=== PATIENT | male | born 1970 | race Caucasian/White ===

== ENCOUNTER 2023-08-31 16:57 | Emergency (ER) | payer OTHER, SELFPAY ==
[2023-08-31 17:02] VITALS: BP 130/92; PULSE 92; TEMP 36.8; O2SAT 99; BMI 23.5
--- NOTE | 2023-08-31 17:57 | CT_ITS ---
The [address] [address] Patient Name: XAVIER QUINTERO MRN: [id number] date: 1970 Sex: M Assigned Patient Location: ER Current Patient Location: ED.MAIN Accession/Order Number: [id number] Exam Date: 08/31/2023 18:29 Report Date: 08/31/2023 20:05 At the request of: BECKIE VORA Procedure: CT abdomen pelvis w con CT ABDOMEN AND PELVIS WITH CONTRAST: INDICATION: abd pain. COMPARISON: None. TECHNIQUE:Multiple thin section transaxial slices were acquired through the abdomen and pelvis with intravenous contrast. Coronal and sagittal reconstructed images were reviewed. Oral contrastWas not administered. FINDINGS: LOWER CHEST: The lower chest is unremarkable. LIVER: The liver is unremarkable. GALLBLADDER AND BILIARY SYSTEM: No obvious ductal dilation. No calcified stones. SPLEEN: The spleen is unremarkable. PANCREAS: The pancreas is unremarkable. ADRENAL GLANDS: The adrenal glands are unremarkable. KIDNEYS AND URETERS: There is a 2.5 mm size calculus at the left ureterovesical junction. This is not contributing to obstructive uropathy of the left kidney. There is no right hydronephrosis. The right ureter is within normal limits. There is a nonobstructive calculus in the right upper kidney. VASCULATURE: There is atherosclerotic plaque in the abdominal aorta without aneurysm. There is a filter in the inferior vena cava. PERITONEUM/RETROPERITONEUM: Peritoneum/retroperitoneum is unremarkable. LYMPH NODES: No suspicious lymphadenopathy. GASTROINTESTINAL TRACT: The bowel is normal in caliber.There is chronic colonic diverticulosis of the colon without acute inflammation.The appendix is visualized and is not inflamed. BLADDER: There is a 2.5 mm size calculus in the left ureterovesical junction. REPRODUCTIVE SYSTEM: Reproductive system is unremarkable. BODY WALL: Unremarkable. BONES: There is a compression deformity of the L5 vertebral body with an associated Schmorl's node. This has a chronic appearance. CT/CT abdomen pelvis w con IMPRESSION: There is a 2.5 mm size calculus at the left ureterovesical junction. Despite the presence of this calculus, it is not contributing to hydronephrosis of the left kidney. Electronically authenticated by: EVELINE TAO Date: 08/31/2023 20:05
--- NOTE | 2023-08-31 18:06 | ED_ITS ---
HPI - Abdominal Pain General Chief Complaint: Abdominal Pain Stated Complaint: Abdominal Pain Time Seen by Provider: 08/31/23 17:21 Source: patient Mode of arrival: walk-in Limitations: no limitations History of Present Illness HPI narrative: Patient presents ED complaining of generalized vague abdominal pain. He reports that he has had a longstanding history of drinking alcohol. He said this pain started 4 days ago. He has not been drinking the past couple of days. He said he intermittently drinks and he is really cut back in the past month or so. He reports he started drinking at age 19 and he used to drink a lot but he does not drink as much as he used to. He has quit on his own a few times but it usually only lasts about 3 weeks. Patient reports nausea but no vomiting. He reports decreased appetite and p.o. intake over the past 4 days. No pain into the back no fevers. He is not jaundiced. He reports normal stools and no UTI symptoms. Related Data Home Medications ?Medication ?Instructions ?Recorded ?Confirmed clonidine HCl 0.2 mg tablet 0.2 mg PO Q12H PRN alcohol 08/31/23 08/31/23 withdrawal paliperidone 6 mg tablet,extended 6 mg PO Q24H 08/31/23 08/31/23 release 24 hr vortioxetine 10 mg tablet 10 mg PO DAILY 08/31/23 08/31/23 (Trintellix) Allergies Allergy/AdvReac Type Severity Reaction Status Date / Time No Known Drug Allergies Allergy Verified 08/31/23 17:02 Review of Systems ROS Status of ROS 10 or more systems reviewed and unremark able except as noted in history and below [facility] Medical History (Updated 08/31/23 @ 20:33 by Shayy Addison MD) Depression ?F32.A - Depression, unspecified (ICD-10) Anxiety ?F41.9 - Anxiety disorder, unspecified (ICD-10) Exam Narrative Exam Narrative: Time Seen: [] Vital Signs: [Per nurse's notes.] General: [Alert] Skin: [Warm, dry, no rash.] Head: [Normocephalic, atraumatic.] Neck: [Supple, trachea midline.] Eye: [Pupils are equal, round and reactive to light, extraocular movements are intact, normal conjunctiva.] Ears, nose, mouth and throat: oral mucosa moist. Cardiovascular: [Regular rate and rhythm, no murmur.] Respiratory: [Lungs are clear to auscultation, respirations are non-labored, breath sounds are equal.] Chest wall: [No tenderness, no deformity.] Gastrointestinal: [Soft, nontender, non distended, normal bowel sounds.] MSK: 5 out of 5 muscle strength x 4 extremities no calf pain or edema Lymphatics: [No lymphadenopathy.] Psychiatric: [Cooperative, appropriate mood & affect.] Neurological: [Alert and oriented to person, place, time, and situation, no focal neurological deficit observed.] Constitutional Vital Signs, click to edit/add: Last Vital Signs Temp 98.3 F 08/31/23 17:02 Pulse 80 08/31/23 19:15 Resp 18 08/31/23 19:15 BP 114/80 08/31/23 19:15 Pulse Ox 99 08/31/23 19:15 O2 Del Method Room Air 08/31/23 19:15 Course Vital Signs Vital signs: Vital Signs Temperature 98.3 F 08/31/23 17:02 Pulse Rate 92 H 08/31/23 17:02 Respiratory Rate 18 08/31/23 17:02 Blood Pressure 130/92 H 08/31/23 17:02 Pulse Oximetry 99 08/31/23 17:02 Temperature 98.3 F 08/31/23 17:02 Pulse Rate 80 08/31/23 19:15 Respiratory Rate 18 08/31/23 19:15 Blood Pressure 114/80 08/31/23 19:15 Pulse Oximetry 99 08/31/23 19:15 Oxygen Delivery Method Room Air 08/31/23 19:15 MDM - Abdominal Pain Lab Data Labs: Lab Results 08/31/23 08/31/23 Range/Units 18:47 18:50 WBC 4.9 (4.0-11.0) 10^3/uL RBC 4.51 L (4.70-6.10) 10^6/uL Hgb 15.1 (14.0-18.0) g/dL Hct 43.7 (42.0-54.0) % MCV 96.9 H (80.0-94.0) fL MCH 33.5 (25.9-34.0) pg MCHC 34.6 (29.9-35.2) g/dL RDW 12.0 (11.0-15.0) % Plt Count 102 L (150-450) 10^3/uL MPV 10.0 (9.5-13.5) fL Neut % (Auto) 57.4 (43.0-75.0) % Lymph % (Auto) 32.8 (20.5-60.0) % [place] % (Auto) 8.2 (1.7-12.0) % Eos % (Auto) 0.6 L (0.9-7.0) % Baso % (Auto) 0.8 (0.2-2.0) % Neut # (Auto) 2.8 (1.4-6.5) 10^3/uL Lymph # (Auto) 1.6 (1.2-3.8) 10^3/uL [place] # (Auto) 0.4 (0.3-0.8) 10^3/uL Eos # (Auto) 0.0 (0.0-0.7) 10^3/uL Baso # (Auto) 0.0 (0.0-0.1) 10^3/uL Abs Immat Gran (auto) 0.01 (0.00-0.03) 10^3/uL Imm/Tot Granulo (auto) 0.2 (0.0-0.5) % Sodium 136 (136-145) mmol/L Potassium 3.3 L (3.5-5.1) mmol/L Chloride 103 (98-107) mmol/L Carbon Dioxide 27.0 (21.0-32.0) mmol/L Anion Gap 9.3 BUN 5.0 L (7.0-18.0) mg/dL Creatinine 0.81 (0.70-1.30) mg/dL Est GFR ( Amer) >60 (>=60) Est GFR (Non-Af Amer) >60 (>=60) BUN/Creatinine Ratio 6.2 Glucose 103 (74-106) mg/dL Lactate 1.2 (0.4-2.0) mmol/L Calcium 8.8 (8.5-10.1) mg/dL Total Bilirubin 0.5 (0.2-1.0) mg/dL AST 34 (15-37) U/L ALT 47 (16-63) U/L Alkaline Phosphatase 100 (46-116) U/L Total Protein 6.8 (6.4-8.2) g/dL Albumin 3.4 (3.4-5.0) g/dL Globulin 3.4 g/dL Albumin/Globulin Ratio 1.0 Lipase 36.0 (16.0-77.0) U/L Urine Color Lt. yellow (YELLOW) Urine Clarity Clear (CLEAR) Urine pH 7.0 (5.0-9.0) Ur Specific [place] 1.010 (1.005-1.025) Urine Protein Negative (NEG/TRACE) mg/dL Urine Glucose (UA) Negative (NEGATIVE) mg/dL Urine Ketones Negative (NEGATIVE) mg/dL Urine Occult Blood Negative (NEGATIVE) Urine Nitrite Negative (NEGATIVE) Urine Bilirubin Negative (NEGATIVE) Urine Urobilinogen 1.0 (0.2-1.0) EU/dL Ur Leukocyte Esterase Small A (NEGATIVE) Urine RBC 0-2 (0-2) #/HPF Urine WBC 5-10 A (NONE SEEN) #/HPF Ur Squamous Epith Cells Few A (NONE/RARE) #/LPF Ur Transition Epith Cell Few A (NONE SEEN) #/LPF Urine Crystals Seen A (None Seen) #/HPF Calcium Oxalate Crystal Few Amorphous Sediment Moderate Urine Bacteria Small A (NONE SEEN) #/HPF Urine Casts None seen (NONE SEEN) #/LPF Urine Mucus Small A (NONE SEEN) Ur Culture Indicated? Yes Discharge Plan Discharge Stand Alone Forms: Portal Instructions Chief Complaint: Abdominal Pain Clinical Impression: Calculus of kidney Patient Disposition: Home, Self-Care Time of Disposition Decision: 20:32 Condition: Good Prescriptions / Home Meds: No Action clonidine HCl 0.2 mg tablet 0.2 mg PO Q12H PRN (Reason: alcohol withdrawal) Trintellix 10 mg tablet 10 mg PO DAILY paliperidone 6 mg tablet extended release 24hr 6 mg PO Q24H Print Language: Kinyarwanda Instructions: Kidney Stones (ED), How to Strain Your Urine (ED) Referrals: Giovanni Patterson MD [Physician] - 1 week Physician,Non-StaffMD [Primary Care Provider] - 1 week Shaikh López MD [Physician] - 1 week Discharge Date/Time: 08/31/23 21:08
--- NOTE | 2023-08-31 18:12 | PC.NURSE ---
patient reports abdominal pain, described as nausea and pressure, for past 4 days. patient reports poor oral intake due to this. patient reports he was a very heavy drinker for about 30years but cut back to 2-3 per day 6months ago
[2023-08-31] MEDS: 0.9 % SODIUM CHLORIDE 1,000 ML 100 ML IV (18:50)
[2023-08-31 18:58] LABS: Basophils Percent Auto 0.8 % (0.2-2.0); Eosinophils Percent Auto 0.6 % (0.9-7.0); Hematocrit 43.7 % (42.0-54.0); Hemoglobin 15.1 g/dL (14.0-18.0); Immature Granulocytes Abs Auto 0.01 10^3/uL (0.00-0.03); Immature Granulocytes Pct Auto 0.2 % (0.0-0.5); Lymphocytes Absolute Auto 1.6 10^3/uL (1.2-3.8); Lymphocytes Percent Auto 32.8 % (20.5-60.0); Mean Corpuscular HGB Conc 34.6 g/dL (29.9-35.2); Mean Corpuscular Hemoglobin 33.5 pg (25.9-34.0); Mean Corpuscular Volume 96.9 fL (80.0-94.0); Monocytes Absolute Auto 0.4 10^3/uL (0.3-0.8); Monocytes Percent Auto 8.2 % (1.7-12.0); Neutrophils Absolute Auto 2.8 10^3/uL (1.4-6.5); Neutrophils Percent Auto 57.4 % (43.0-75.0); Platelet Count 102 10^3/uL (150-450); Red Blood Count 4.51 10^6/uL (4.70-6.10); White Blood Count 4.9 10^3/uL (4.0-11.0)
[2023-08-31 19:11] LABS: Bilirubin Urine NEGATIVE (NEGATIVE); Blood Urine NEGATIVE (NEGATIVE); Clarity Urine CLEAR (CLEAR); Color Urine LT. YELLOW (YELLOW); Glucose Urine UA NEGATIVE (NEGATIVE); Ketones Urine NEGATIVE (NEGATIVE); Leukocyte Esterase Urine SMALL (NEGATIVE); Nitrite Urine NEGATIVE (NEGATIVE); Protein Urine NEGATIVE (NEG/TRACE)
[2023-08-31 19:13] LABS: Urine Microscopic Indicated YES
[2023-08-31 19:13] LABS: Alanine Aminotransferase 47 U/L (16-63); Albumin Level 3.4 g/dL (3.4-5.0); Alkaline Phosphatase 100 U/L (46-116); Anion Gap 9.3; Aspartate Amino Transferase 34 U/L (15-37); BUN Creatinine Ratio 6.2; Bilirubin Total 0.5 mg/dL (0.2-1.0); Calcium 8.8 mg/dL (8.5-10.1); Chloride 103 mmol/L (98-107); Estimated GFR (African America >60 (>=60); Estimated GFR (Non-African Ame >60 (>=60); Globulin 3.4 g/dL; Glucose 103 mg/dL (74-106); Potassium 3.3 mmol/L (3.5-5.1); Sodium 136 mmol/L (136-145); Total Protein 6.8 g/dL (6.4-8.2)
[2023-08-31 19:15] VITALS: BP 114/80; PULSE 80; O2SAT 99
[2023-08-31 19:19] LABS: Bacteria Urine SMALL #/HPF (NONE SEEN); Crystals Seen? Seen #/HPF (None Seen); Mucus Urine SMALL (NONE SEEN); RBC Urine 0-2 #/HPF (0-2); Squamous Epithelial Cell Urine FEW #/LPF (NONE/RARE); Transitional Epi Cells Urine FEW #/LPF (NONE SEEN)
[2023-08-31 19:20] LABS: Amorphous Sediment Urine MODERATE; Calcium Oxalate Crystals Urine FEW; Cast Seen? NONE SEEN #/LPF (NONE SEEN); Urine Culture Indicated YES
[2023-08-31 19:48] LABS: Lactate/Lactic Acid 1.2 mmol/L (0.4-2.0)
--- NOTE | 2023-08-31 20:25 | ED.GENADUL1 ---
HPI HPI - General Adult General Chief complaint: Abdominal Pain Stated complaint: Abdominal Pain Time Seen by Provider: 08/31/23 17:21 Source: patient Mode of arrival: walk-in Limitations: no limitations History of Present Illness HPI narrative: This 53-year-old male with a history of alcohol dependence was signed out to me at shift change pending CT scan and laboratory analysis. He presents for evaluation of left lower quadrant abdominal pain that has been present for the past several days. Patient was seen and examined. He denies any nausea or vomiting. He states he is not really having pain but it is a discomfort in his lower abdomen. He is not having any burning with urination or fevers. He denies any additional complaints at this time. He does not have a family physician to follow-up with. I reviewed his labs. He has a normal white count and hemoglobin. Electrolytes are normal. He has a normal lactic acid. He does have bacteria, leukocyte esterase and 2-5 white blood cells per high-power field in his urine. He will be given a dose of Toradol for pain control as well as 1 g of IV Rocephin for the slight UTI that he has. He will be referred to outpatient urology and family medicine. He will be discharged home with prescription for Keflex and ketorolac to use as needed Related Data Home Medications ?Medication ?Instructions ?Recorded ?Confirmed clonidine HCl 0.2 mg tablet 0.2 mg PO Q12H PRN alcohol 08/31/23 08/31/23 withdrawal paliperidone 6 mg tablet,extended 6 mg PO Q24H 08/31/23 08/31/23 release 24 hr vortioxetine 10 mg tablet 10 mg PO DAILY 08/31/23 08/31/23 (Trintellix) Allergies Allergy/AdvReac Type Severity Reaction Status Date / Time No Known Drug Allergies Allergy Verified 08/31/23 17:02 Opioid HPI Opioid Management Most Recent Opioid Data: Last Pain Scale 4 08/31/23 17:08 PFSH PFSH Medical History (Updated 08/31/23 @ 20:33 by Shayy Addison MD) Depression ?F32.A - Depression, unspecified (ICD-10) Anxiety ?F41.9 - Anxiety disorder, unspecified (ICD-10) Exam Constitutional Vital Signs, click to edit/add: Last Vital Signs Temp 98.3 F 08/31/23 17:02 Pulse 80 08/31/23 19:15 Resp 18 08/31/23 19:15 BP 114/80 08/31/23 19:15 Pulse Ox 99 08/31/23 19:15 O2 Del Method Room Air 08/31/23 19:15 Course Vital Signs Vital signs: Vital Signs Temperature 98.3 F 08/31/23 17:02 Pulse Rate 92 H 08/31/23 17:02 Respiratory Rate 18 08/31/23 17:02 Blood Pressure 130/92 H 08/31/23 17:02 Pulse Oximetry 99 08/31/23 17:02 Temperature 98.3 F 08/31/23 17:02 Pulse Rate 80 08/31/23 19:15 Respiratory Rate 18 08/31/23 19:15 Blood Pressure 114/80 08/31/23 19:15 Pulse Oximetry 99 08/31/23 19:15 Oxygen Delivery Method Room Air 08/31/23 19:15 Medical Decision Making MDM Narrative Medical decision making narrative: [place] [address] CT Scan Report Signed Patient: XAVIER QUINTERO MR#: [id number] : 1970 Acct:[id number] Age/Sex: 53 / M ADM Date: 08/31/23 Loc: ER Attending Dr: Ordering Physician: Beckie Orantes D.O. Date of Service: 08/31/23 Procedure(s): CT abdomen pelvis w con Accession Number(s): [id number] cc: Physician,Non-Staff M.DZakiya~ The [address] [address] Patient Name: XAVIER QUINTERO MRN: [id number] date: 1970 Sex: M Assigned Patient Location: ER Current Patient Location: ED.MAIN Accession/Order Number: [id number] Exam Date: 08/31/2023 18:29 Report Date: 08/31/2023 20:05 At the request of: BECKIE ORANTES Procedure: CT abdomen pelvis w con CT ABDOMEN AND PELVIS WITH CONTRAST: INDICATION: abd pain. COMPARISON: None. TECHNIQUE:Multiple thin section transaxial slices were acquired through the abdomen and pelvis with intravenous contrast. Coronal and sagittal reconstructed images were reviewed. Oral contrastWas not administered. FINDINGS: LOWER CHEST: The lower chest is unremarkable. LIVER: The liver is unremarkable. GALLBLADDER AND BILIARY SYSTEM: No obvious ductal dilation. No calcified stones. SPLEEN: The spleen is unremarkable. PANCREAS: The pancreas is unremarkable. ADRENAL GLANDS: The adrenal glands are unremarkable. KIDNEYS AND URETERS: There is a 2.5 mm size calculus at the left ureterovesical junction. This is not contributing to obstructive uropathy of the left kidney. There is no right hydronephrosis. The right ureter is within normal limits. There is a nonobstructive calculus in the right upper kidney. VASCULATURE: There is atherosclerotic plaque in the abdominal aorta without aneurysm. There is a filter in the inferior vena cava. PERITONEUM/RETROPERITONEUM: Peritoneum/retroperitoneum is unremarkable. LYMPH NODES: No suspicious lymphadenopathy. GASTROINTESTINAL TRACT: The bowel is normal in caliber.There is chronic colonic diverticulosis of the colon without acute inflammation.The appendix is visualized and is not inflamed. BLADDER: There is a 2.5 mm size calculus in the left ureterovesical junction. REPRODUCTIVE SYSTEM: Reproductive system is unremarkable. BODY WALL: Unremarkable. BONES: There is a compression deformity of the L5 vertebral body with an associated Schmorl's node. This has a chronic appearance. CT/CT abdomen pelvis w con IMPRESSION: There is a 2.5 mm size calculus at the left ureterovesical junction. Despite the presence of this calculus, it is not contributing to hydronephrosis of the left kidney. Electronically authenticated by: EVELINE TAO Date: 08/31/2023 20:05 Lab Data Lab results reviewed: Yes I reviewed the patient's lab results Labs: Lab Results 08/31/23 08/31/23 Range/Units 18:47 18:50 WBC 4.9 (4.0-11.0) 10^3/uL RBC 4.51 L (4.70-6.10) 10^6/uL Hgb 15.1 (14.0-18.0) g/dL Hct 43.7 (42.0-54.0) % MCV 96.9 H (80.0-94.0) fL MCH 33.5 (25.9-34.0) pg MCHC 34.6 (29.9-35.2) g/dL RDW 12.0 (11.0-15.0) % Plt Count 102 L (150-450) 10^3/uL MPV 10.0 (9.5-13.5) fL Neut % (Auto) 57.4 (43.0-75.0) % Lymph % (Auto) 32.8 (20.5-60.0) % [place] % (Auto) 8.2 (1.7-12.0) % Eos % (Auto) 0.6 L (0.9-7.0) % Baso % (Auto) 0.8 (0.2-2.0) % Neut # (Auto) 2.8 (1.4-6.5) 10^3/uL Lymph # (Auto) 1.6 (1.2-3.8) 10^3/uL [place] # (Auto) 0.4 (0.3-0.8) 10^3/uL Eos # (Auto) 0.0 (0.0-0.7) 10^3/uL Baso # (Auto) 0.0 (0.0-0.1) 10^3/uL Abs Immat Gran (auto) 0.01 (0.00-0.03) 10^3/uL Imm/Tot Granulo (auto) 0.2 (0.0-0.5) % Sodium 136 (136-145) mmol/L Potassium 3.3 L (3.5-5.1) mmol/L Chloride 103 (98-107) mmol/L Carbon Dioxide 27.0 (21.0-32.0) mmol/L Anion Gap 9.3 BUN 5.0 L (7.0-18.0) mg/dL Creatinine 0.81 (0.70-1.30) mg/dL Est GFR ( Amer) >60 (>=60) Est GFR (Non-Af Amer) >60 (>=60) BUN/Creatinine Ratio 6.2 Glucose 103 (74-106) mg/dL Lactate 1.2 (0.4-2.0) mmol/L Calcium 8.8 (8.5-10.1) mg/dL Total Bilirubin 0.5 (0.2-1.0) mg/dL AST 34 (15-37) U/L ALT 47 (16-63) U/L Alkaline Phosphatase 100 (46-116) U/L Total Protein 6.8 (6.4-8.2) g/dL Albumin 3.4 (3.4-5.0) g/dL Globulin 3.4 g/dL Albumin/Globulin Ratio 1.0 Lipase 36.0 (16.0-77.0) U/L Urine Color Lt. yellow (YELLOW) Urine Clarity Clear (CLEAR) Urine pH 7.0 (5.0-9.0) Ur Specific [place] 1.010 (1.005-1.025) Urine Protein Negative (NEG/TRACE) mg/dL Urine Glucose (UA) Negative (NEGATIVE) mg/dL Urine Ketones Negative (NEGATIVE) mg/dL Urine Occult Blood Negative (NEGATIVE) Urine Nitrite Negative (NEGATIVE) Urine Bilirubin Negative (NEGATIVE) Urine Urobilinogen 1.0 (0.2-1.0) EU/dL Ur Leukocyte Esterase Small A (NEGATIVE) Urine RBC 0-2 (0-2) #/HPF Urine WBC 5-10 A (NONE SEEN) #/HPF Ur Squamous Epith Cells Few A (NONE/RARE) #/LPF Ur Transition Epith Cell Few A (NONE SEEN) #/LPF Urine Crystals Seen A (None Seen) #/HPF Calcium Oxalate Crystal Few Amorphous Sediment Moderate Urine Bacteria Small A (NONE SEEN) #/HPF Urine Casts None seen (NONE SEEN) #/LPF Urine Mucus Small A (NONE SEEN) Ur Culture Indicated? Yes Discharge Plan Discharge Stand Alone Forms: Portal Instructions Chief Complaint: Abdominal Pain Clinical Impression: Calculus of kidney Patient Disposition: Home, Self-Care Time of Disposition Decision: 20:32 Condition: Good Prescriptions / Home Meds: No Action clonidine HCl 0.2 mg tablet 0.2 mg PO Q12H PRN (Reason: alcohol withdrawal) Trintellix 10 mg tablet 10 mg PO DAILY paliperidone 6 mg tablet extended release 24hr 6 mg PO Q24H Print Language: Greenlandic Instructions: Kidney Stones (ED), How to Strain Your Urine (ED) Referrals: Giovanni Patterson MD [Physician] - 1 week Physician,Non-Staff, [Primary Care Provider] - 1 week Shaikh López MD [Physician] - 1 week
[2023-08-31] MEDS: KETOROLAC TROMETHAMINE 30 MG/ML VIAL IVP (20:43)
[2023-08-31] MEDS: CEFTRIAXONE 1,000 MG in 0.9 % SODIUM CHLORIDE 50 ML 100 MG IV (20:43)
--- NOTE | 2023-09-03 15:21 | PC.NURSE ---
09/03/23 pt urine c+s from 08/31/23 reviewed by zoe ortiz for Fosfomycin 3 grams 1 dose by mouth called to [facility] pt pharmacy. pt called to update no answer message left for return call. Migel Ulrich
== END 2023-08-31 21:08 | disposition home or self-care (01) ==
PROVIDERS: Emergency Medicine; Emergency Provider Emergency Medicine
DX: N20.0 Calculus of kidney (principal)
CPT/HCPCS: 36415; 74177; 80053; 81001; 83605; 83690; 85025; 87086; 87150; 87186; 96365; 96375; 99285; J0696; J1885; Q9967

== ENCOUNTER 2023-09-23 13:22 | Emergency (ER) | payer OTHER, SELFPAY ==
[2023-09-23 13:27] VITALS: BP 112/82; PULSE 115; TEMP 36.9; O2SAT 98; BMI 26.6
--- OUTSIDE RECORDS SUMMARY | 2023-09-23 13:30 | XMS_ITS | CCD ---
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 (RBC) [Mass/Vol] 32.4 g/dL Normal 28.4-34.8 [facility] Comment on above: Performed By: #### C DP, LACWB, CP #### [address] [address] MCV (RBC) [Entitic vol] 89.6 fL Normal 82.6-102.9 [facility] Comment on above: Performed By: #### C DP, LACWB, CP #### [address] [address] Monocytes (Bld) [#/Vol] 0.92 10*3/uL Normal 0.10-1.20 [facility] Comment on above: Performed By: #### C DP, LACWB, CP #### [address] [address] Monocytes/100 WBC (Bld) 8 % Normal 3-12 [facility] Comment on above: Performed By: #### C DP, LACWB, CP #### [address] [address] Neutrophil (Seg) 74 % High 36-65 [facility] Comment on above: Performed By: #### C DP, LACWB, CP #### [address] [address] NRBC Automated 0.0 per 100 WBC Normal 0.0 [facility] Comment on above: Performed By: #### C DP, LACWB, CP #### [address] [address] Platelet mean volume (Bld) [Entitic vol] 9.4 fL Normal 8.1-13.5 [facility] Comment on above: Performed By: #### C DP, LACWB, CP #### [address] [address] Platelets (Bld) [#/Vol] 274 10*3/uL Normal 138-453 [facility] Comment on above: Performed By: #### C DP, LACWB, CP #### [address] [address] RBC (Bld) [#/Vol] 4.61 10*6/uL Normal 4.21-5.77 [facility] Comment on above: Performed By: #### C DP, LACWB, CP #### [address] [address] WBC (Bld) [#/Vol] 11.8 10*3/uL High 3.5-11.3 [facility] Comment on above: Performed By: #### C DP, LACWB, CP #### [address] [address] Auto Diff Performed NOT REPORTED Normal [facility] Comment on above: Performed By: #### C DP, LACWB, CP #### [address] [address] Platelets (Bld) [#/Vol] NOT REPORTED Normal [facility] Comment on above: Performed By: #### C DP, LACWB, CP #### [facility] [place] [address] RBC morphology finding Nom (Bld) NOT REPORTED Normal [facility] Comment on above: Performed By: #### C MINA DAVIESWSaeid, CP #### [facility] [address] [place] [address] WBC Morphology NOT REPORTED Normal [facility] Comment on above: Performed By: #### C VICENTA DAVIES, CP #### [facility] [address] [place] [address] Comp Metabolic Profon 2018 (cont.) Normal [facility] Comment on above: Result Comment: Aver age GFR for 40-49 years old: 99 mL/min/1.73sq m Chronic Kidney Disease: <60 mL/min/1.73sq m Kidney failure: <15 mL/min/1.73sq m eGFR calculated using average adult body mass. Additional eGFR calculator available at: http://www.Zova.Study2gether/multiple_crcl_2012.htm Performed By: #### C VICENTA DAVIES CP #### [facility] [address] [place] [address] Albumin [Mass/Vol] 3.8 g/dL Normal 3.5-5.2 [facility] Comment on above: Performed By: #### C VICENTA DAVIES CP #### [facility] [address] [place] [address] Albumin/Globulin [Mass ratio] 1.0 {ratio} Normal 1.0-2.5 [facility] Comment on above: Performed By: #### C VICENTA DAVIES CP #### [facility] [address] [place] [address] Alkaline Phos 124 U/L Normal 40-129 [facility] Comment on above: Performed By: #### C DP, LACWB, CP #### [facility] [address] [place] [address] ALT [Catalytic activity/Vol] 74 U/L High 5-41 [facility] Comment on above: Performed By: #### C DP, LACWB, CP #### [facility] [address] [place] [address] Anion gap [Moles/Vol] 20 mmol/L High 9-17 [facility] Comment on above: Performed By: #### C DP, LACWB, CP #### [facility] [address] [place] [address] AST [Catalytic activity/Vol] 68 U/L High <40 [facility] Comment on above: Performed By: #### C DP, LACWB, CP #### [facility] [address] [place] [address] Bilirubin Ql (U) 0.59 mg/dL Normal 0.3-1.2 [facility] Comment on above: Performed By: #### C DP, LACWB, CP #### [facility] [address] [place] [address] Calcium [Mass/Vol] 9.5 mg/dL Normal 8.6-10.4 [facility] Comment on above: Performed By: #### C DP, LACWB, CP #### [facility] [address] [place] [address] Chloride [Moles/Vol] 100 mmol/L Normal 98-107 [facility] Comment on above: Performed By: #### C DP, LACWB, CP #### [facility] [address] [place] [address] CO2 [Moles/Vol] 22 mmol/L Normal 20-31 [facility] Comment on above: Performed By: #### C DP, LACWB, CP #### [facility] [address] [place] [address] Creatinine [Mass/Vol] 0.68 mg/dL Low 0.70-1.20 [facility] Comment on above: Performed By: #### C DP, LACWB, CP #### [facility] [address] [place] [address] GFR, Amer >60 Normal >60 [facility] Comment on above: Performed By: #### C DP, LACWB, CP #### [facility] [address] [place] [address] GFR,non Amer >60 Normal >60 [facility] Comment on above: Performed By: #### C DP, LACWB, CP #### [facility] [address] [place] [address] Glucose [Mass/Vol] 114 mg/dL High 70-99 [facility] Comment on above: Performed By: #### C DP, LACWB, CP #### [facility] [address] [place] [address] Potassium [Moles/Vol] 4.1 mmol/L Normal 3.7-5.3 [facility] Comment on above: Performed By: #### C DP, LACWB, CP #### [facility] [address] [place] [address] Protein [Mass/Vol] 7.6 g/dL Normal 6.4-8.3 [facility] Comment on above: Performed By: #### C DP, LACWB, CP #### [facility] [address] [place] [address] Sodium [Moles/Vol] 142 mmol/L Normal 135-144 [facility] Comment on above: Performed By: #### C DP, LACWB, CP #### [facility] [address] [place] [address] Urea nitrogen [Mass/Vol] 8 mg/dL Normal 6-20 [facility] Comment on above: Performed By: #### C DP, LACWB, CP #### [facility] [address] [place] [address] BUN/CRE Ratio NOT REPORTED Normal 9-20 [facility] Comment on above: Performed By: #### C DP, LACWB, CP #### [facility] [address] [place] [address] Staging: NOT REPORTED Normal [facility] Comment on above: Performed By: #### C DP, LACWB, CP #### [facility] [address] [place] [address] Lactic Acid,Whole Blon 03-21 Lactic Acid,Whole Bl 1.4 mmol/L Normal 0.7-2.1 [facility] Comment on above: Performed By: #### F LUAD #### [address] [address] Lactic Acid,Whole Bl 3.1 mmol/L High 0.7-2.1 [facility] Comment on above: Performed By: #### C DP, LACWB, CP #### [address] [address] XR CHEST (2 VW)on 03-21-2018 XR CHEST (2 VW) EXAMINATION: TWO VIEWS OF THE CHEST 03/21/2018 2:01 pm COMPARISON: Chest radiograph performed 03/17/2018. HISTORY: ORDERING SYSTEM PROVIDED HISTORY: pna TECHNOLOGIST PROVIDED HISTORY: pna FINDINGS: There is right mid and lower lung consolidation. There is no pneumothorax. There is no pleural effusion. The mediastinal structures are unremarkable. The upper abdomen is unremarkable. The extrathoracic soft tissues are unremarkable. IMPRESSION: Right mid and lower lung consolidation consistent with pneumonia. Interpreted by: Abdon Sarmiento MD Signed by: Abdon Sarmiento MD 03/21/18 Final result Normal [facility] APTTon 03-17-2018 aPTT Coag (Bld) [Time] 26.5 s Normal 20.5-30.5 [facility] Comment on above: Performed By: #### C DP, LACWB, PT, PTT, CP #### [address] [address] CBC with Diffon 03-17-2018 Abs. Basophil 0.05 k/uL Normal 0.00-0.20 [facility] Comment on above: Performed By: #### C DP, LACWB, PT, PTT, CP #### [address] [address] Abs.Imm.Granulocyte 0.05 k/uL Normal 0.00-0.30 [facility] Comment on above: Performed By: #### C DP, LACWB, PT, PTT, CP #### [place] [address] Abs.Neutrophil (Seg) 9.30 k/uL High 1.50-8.10 [facility] Comment on above: Performed By: #### C DP, LACWB, PT, PTT, CP #### [address] [address] Basophils/100 WBC (Bld) 0 % Normal 0-2 [facility] Comment on above: Performed By: #### C DP, LACWB, PT, PTT, CP #### [address] [address] Eosinophils (Bld) [#/Vol] 10*3/uL Normal 0.00-0.44 [facility] Comment on above: Performed By: #### C DP, LACWB, PT, PTT, CP #### [address] [address] Eosinophils/100 WBC (Bld) 0 % Low 1-4 [facility] Comment on above: Performed By: #### C DP, LACWB, PT, PTT, CP #### [place] [address] Erythrocyte distribution width (RBC) [Ratio] 11.7 % Low 11.8-14.4 [facility] Comment on above: Performed By: #### C DP, LACWB, PT, PTT, CP #### [place] [address] Hematocrit (Bld) [Volume fraction] 37.7 % Low 40.7-50.3 [facility] Comment on above: Performed By: #### C DP, LACWB, PT, PTT, CP #### [address] [address] Hemoglobin (Bld) [Mass/Vol] 12.3 g/dL Low 13.0-17.0 [facility] Comment on above: Performed By: #### C DP, LACWB, PT, PTT, CP #### [address] [address] Immature granulocytes (Bld) [#/Vol] 0 % Normal 0 [facility] Comment on above: Performed By: #### C DP, LACWB, PT, PTT, CP #### [place] [address] Lymphocytes (Bld) [#/Vol] 1.19 10*3/uL Normal 1.10-3.70 [facility] Comment on above: Performed By: #### C DP, LACWB, PT, PTT, CP #### [address] [address] Lymphocytes/100 WBC (Bld) 11 % Low 24-43 [facility] Comment on above: Performed By: #### C DP, LACWB, PT, PTT, CP #### [address] [address] MCH (RBC) [Entitic mass] 29.2 pg Normal 25.2-33.5 [facility] Comment on above: Performed By: #### C DP, LACWB, PT, PTT, CP #### [address] [address] MCHC (RBC) [Mass/Vol] 32.6 g/dL Normal 28.4-34.8 [facility] Comment on above: Performed By: #### C DP, LACWB, PT, PTT, CP #### [address] [address] MCV (RBC) [Entitic vol] 89.5 fL Normal 82.6-102.9 [facility] Comment on above: Performed By: #### C DP, LACWB, PT, PTT, CP #### [address] [address] Monocytes (Bld) [#/Vol] 0.77 10*3/uL Normal 0.10-1.20 [facility] Comment on above: Performed By: #### C DP, LACWB, PT, PTT, CP #### [address] [address] Monocytes/100 WBC (Bld) 7 % Normal 3-12 [facility] Comment on above: Performed By: #### C DP, LACWB, PT, PTT, CP #### [address] [address] Neutrophil (Seg) 82 % High 36-65 [facility] Comment on above: Performed By: #### C DP, LACWB, PT, PTT, CP #### [address] [address] NRBC Automated 0.0 per 100 WBC Normal 0.0 [facility] Comment on above: Performed By: #### C DP, LACWB, PT, PTT, CP #### [address] [address] Platelet mean volume (Bld) [Entitic vol] 9.9 fL Normal 8.1-13.5 [facility] Comment on above: Performed By: #### C DP, LACWB, PT, PTT, CP #### [address] [address] Platelets (Bld) [#/Vol] 233 10*3/uL Normal 138-453 [facility] Comment on above: Performed By: #### C DP, LACWB, PT, PTT, CP #### [address] [address] RBC (Bld) [#/Vol] 4.21 10*6/uL Normal 4.21-5.77 [facility] Comment on above: Performed By: #### C DP, LACWB, PT, PTT, CP #### [address] [address] WBC (Bld) [#/Vol] 11.4 10*3/uL High 3.5-11.3 [facility] Comment on above: Performed By: #### C DP, LACWB, PT, PTT, CP #### [address] [address] Auto Diff Performed NOT REPORTED Normal [facility] Comment on above: Performed By: #### C DP, LACWB, PT, PTT, CP #### [address] [address] Platelets (Bld) [#/Vol] NOT REPORTED Normal [facility] Comment on above: Performed By: #### C DP, LACWB, PT, PTT, CP #### [address] [address] RBC morphology finding Nom (Bld) NOT REPORTED Normal [facility] Comment on above: Performed By: #### C DP, LACWB, PT, PTT, CP #### [address] [address] WBC Morphology NOT REPORTED Normal [facility] Comment on above: Performed By: #### C DP, LACWB, PT, PTT, CP #### [address] [address] Comp Metabolic Profon 2017 (cont.) Normal [facility] Comment on above: Result Comment: Aver age GFR for 40-49 years old: 99 mL/min/1.73sq m Chronic Kidney Disease: <60 mL/min/1.73sq m Kidney failure: <15 mL/min/1.73sq m eGFR calculated using average adult body mass. Additional eGFR calculator available at: http://www.Zova.Study2gether/multiple_crcl_2012.htm Performed By: #### C DP, LACWB, PT, PTT, CP #### [address] [address] Albumin [Mass/Vol] 3.5 g/dL Normal 3.5-5.2 [facility] Comment on above: Performed By: #### C DP, LACWB, PT, PTT, CP #### [facility] [address] [place] [address] Albumin/Globulin [Mass ratio] 0.8 {ratio} Low 1.0-2.5 [facility] Comment on above: Performed By: #### C DP, LACWB, PT, PTT, CP #### [facility] [address] [place] [address] Alkaline Phos 101 U/L Normal 40-129 [facility] Comment on above: Performed By: #### C DP, LACWB, PT, PTT, CP #### [address] [address] ALT [Catalytic activity/Vol] 66 U/L High 5-41 [facility] Comment on above: Performed By: #### C DP, LACWB, PT, PTT, CP #### [address] [address] Anion gap [Moles/Vol] 20 mmol/L High 9-17 [facility] Comment on above: Performed By: #### C DP, LACWB, PT, PTT, CP #### [address] [address] AST [Catalytic activity/Vol] 108 U/L High <40 [facility] Comment on above: Performed By: #### C DP, LACWB, PT, PTT, CP #### [address] [address] Bilirubin Ql (U) 0.44 mg/dL Normal 0.3-1.2 [facility] Comment on above: Performed By: #### C DP, LACWB, PT, PTT, CP #### [address] [address] Calcium [Mass/Vol] 9.2 mg/dL Normal 8.6-10.4 [facility] Comment on above: Performed By: #### C DP, LACWB, PT, PTT, CP #### [address] [address] Chloride [Moles/Vol] 98 mmol/L Normal 98-107 [facility] Comment on above: Performed By: #### C DP, LACWB, PT, PTT, CP #### [address] [address] CO2 [Moles/Vol] 21 mmol/L Normal 20-31 [facility] Comment on above: Performed By: #### C DP, LACWB, PT, PTT, CP #### [address] [address] Creatinine [Mass/Vol] 0.65 mg/dL Low 0.70-1.20 [facility] Comment on above: Performed By: #### C DP, LACWB, PT, PTT, CP #### [address] [address] GFR, Amer >60 Normal >60 [facility] Comment on above: Performed By: #### C DP, LACWB, PT, PTT, CP #### [address] [address] GFR,non Amer >60 Normal >60 [facility] Comment on above: Performed By: #### C DP, LACWB, PT, PTT, CP #### [address] [address] Glucose [Mass/Vol] 113 mg/dL High 70-99 [facility] Comment on above: Performed By: #### C DP, LACWB, PT, PTT, CP #### [address] [address] Potassium [Moles/Vol] 3.7 mmol/L Normal 3.7-5.3 [facility] Comment on above: Performed By: #### C DP, LACWB, PT, PTT, CP #### [address] [address] Protein [Mass/Vol] 7.7 g/dL Normal 6.4-8.3 [facility] Comment on above: Performed By: #### C DP, LACWB, PT, PTT, CP #### [address] [address] Sodium [Moles/Vol] 139 mmol/L Normal 135-144 [facility] Comment on above: Performed By: #### C DP, LACWB, PT, PTT, CP #### [address] [address] Urea nitrogen [Mass/Vol] 9 mg/dL Normal -20 [facility] Comment on above: Performed By: #### C DP, LACWB, PT, PTT, CP #### [address] [address] BUN/CRE Ratio NOT REPORTED Normal 12-08 [facility] Comment on above: Performed By: #### C DP, LACWB, PT, PTT, CP #### [address] [address] Staging: NOT REPORTED Normal [facility] Comment on above: Performed By: #### C DP, LACWB, PT, PTT, CP #### [address] [address] Flu A/B Ag Detectionon 03-17 Flu A/B Ag Detection Specimen Description .NASOPHARYNGEAL SWAB Special Requests NOT REPORTED Direct Exam PRESUMPTIVE NEGATIVE for Influenza A + B antigens. PCR testing to confirm this result is available upon request. Specimen will be saved in the laboratory for 7 days. Please call [phone] if PCR testing is indicated. Report Status FINAL 03/17/2018 Normal [facility] Comment on above: Performed By: #### F LUAD #### [address] [address] Lactic Acid,Whole Blon 03-17 Lactic Acid,Whole Bl 0.8 mmol/L Normal 0.7-2.1 [facility] Comment on above: Performed By: #### C DP, LACWB, PT, PTT, CP #### [address] [address] PTon 03-17-2018 INR Coag (PPP) [Relative time] 1.1 {INR} Normal [facility] Comment on above: Result Comment: Therapeutic Range: Moderate Anticoagulant Intensity: INR = 2.0-3.0 High Anticoagulant Intensity: INR = 2.5-3.5 Performed By: #### C DP, LACWB, PT, PTT, CP #### [facility] [address] [place], [place] [id number] PT Coag (PPP) [Time] 12.1 s High 9.0-12.0 [facility] Comment on above: Performed By: #### C DP, LACWB, PT, PTT, CP #### [facility] [place], [place] [id number] XR CHEST (2 VW)on 03-17-2018 XR CHEST (2 VW) EXAMINATION: TWO VIEWS OF THE CHEST 03/17/2018 7:45 pm COMPARISON: None HISTORY: ORDERING SYSTEM PROVIDED HISTORY: cough TECHNOLOGIST PROVIDED HISTORY: cough FINDINGS: Chronic appearing interstitial lung changes. Patchy opacities throughout the right lung. Mild cardiomegaly. No pulmonary edema. Mild thoracic spine degenerative changes. IMPRESSION: Right lung opacities may represent pneumonia. Recommend follow-up to document resolution. Interpreted by: Win Bowles MD Signed by: Win Bowles MD 03/17/18 Final result Normal [facility] Vital Signs Date Time Vital Sign Value Performing Clinician David landin 01-27-2019 12:08-0500 BMI (Body Mass Index) 25.06 kg/m2 [facility] [place], [place] 01-27-2019 12:08-0500 Body Temperature 98.1 [degF] [facility], [place] 01-27-2019 12:08-0500 Body weight 72.58 kg [facility] , [place] 01-27-2019 12:08-0500 BP Diastolic 85 mm[Hg] [facility] , [place] 01-27-2019 12:08-0500 BP Systolic 132 mm[Hg] [facility] , [place] 01-27-2019 12:08-0500 Height 170.2 cm [facility] 01-27-2019 12:08-0500 Pulse (Heart Rate) 85 /min Kahlil Rausch [facility] 01-27-2019 12:08-0500 Pulse Oximetry 96 % [facility] 01-27-2019 12:08-0500 Respiratory Rate 20 /min [facility] Encounters Encounter Date Encounter Type Care Provider Facility Start: 02-12-2020 End: 01-05-2022 ambulatory [facility] Start: 01-27-2019 End: 01-27-2019 Emergency department patient visit CHAS CERNA [facility] Start: 01-27-2019 End: 01-27-2019 Emergency department patient visit [facility] ED Comment on above: Closed fracture of m ultiple ribs of right side, initial encounter (Primary Dx) Start: 03-21-2018 End: 03-23-2018 Evaluation and management of inpatient CHAS CERNA [facility] Start: 03-17-2018 End: 03-18-2018 Emergency department patient visit CHAS CERNA [facility] Procedures Date Procedure Procedure Detail Performing Clinician Start: 01-27-2019 INCENTIVE SPIROMETRY RT MKJEANNA MCGARRYCARLA Start: 01-27-2019 Radex ribs unilatera l 2 views CHAS CERNA Start: 01-27-2019 Radiologic exam ches t 2 views CHAS CERNA Start: 01-27-2019 Radex ribs unilatera l 2 views Gopal Houston Work Phone: Start: 01-27-2019 Radiologic exam ches t 2 views [employer] Work Phone: Start: 03-23-2018 DISCHARGE PATIENT MKKELY CASTRO CARLA Start: 03-23-2018 INITIATE OXYGEN THER APY PROTOCOL CHAS CERNA Start: 03-23-2018 INTAKE AND OUTPUT NITIN GLORIA CARLA Start: 03-22-2018 DIETARY NUTRITION SUPPLEMENTS CHAS CERNA Start: 01-02-2019 Radiologic exam ches t 2 views CHAS CERNA Start: 03-22-2018 INITIATE OXYGEN THER APY PROTOCOL CHAS CERNA Start: 03-22-2018 Blood count complete automated CHAS CERNA Start: 03-22-2018 Comprehensive metabo lic panel CHAS CERNA Start: 03-22-2018 Procalcitonin (pct) MK KELYGLORIA CARLA Start: 03-22-2018 Iadna respiratry pro be & rev trnscr 12-25 target CHAS CERNA Start: 03-22-2018 Assay of lactate VANGIE Serg CERNA Start: 03-22-2018 DAILY WEIGHTS MKJEANNA [place] [facility] Start: 03-22-2018 INTAKE AND OUTPUT NITIN CASTRO CARLA Start: 03-21-2018 INITIATE RT PROTOCOL AL SARAH CERNA Start: 03-21-2018 Assay of lactate VANGIE CERNA Start: 03-21-2018 DIET GENERAL CHAS [place] Start: 03-21-2018 ENCOURAGE DEEP BREAT MARY BETH AND COUGHING CHAS CERNA Start: 03-21-2018 FULL CODE [facility]AS [place] Start: 03-21-2018 INITIATE OXYGEN THER APY PROTOCOL CHAS CERNA Start: 03-21-2018 INTAKE AND OUTPUT NITIN CASTRO CARLA Start: 03-21-2018 IP CONSULT TO SOCIAL WORK CHAS CERNA Start: 03-21-2018 NOTIFY PHYSICIAN (SPECIFY) CHAS CERNA Start: 03-21-2018 OT EVAL AND TREAT NITIN CASTRO CARLA Start: 03-21-2018 PLACE INTERMITTENT PNEUMATIC COMPRESSION DEVICE CHAS CERNA Start: 03-21-2018 PT EVAL AND TREAT MKIS GLORIA CARLA Start: 03-21-2018 TELEMETRY MONITORING AL SARAH CERNA Start: 03-21-2018 VITAL SIGNS [facility]AS [place] Start: 03-21-2018 Cul bact xcpt urine blood/stool aerobic isol CHAS CERNA Start: 03-21-2018 Microscopic observat ion Gram stain Nom (Unsp spec) CHAS CERNA Start: 03-21-2018 PATIENT STATUS (FROM ED OR OR/PROCEDURAL) CHAS CERNA Start: 03-21-2018 IP CONSULT TO HOSPITALIST VANGIESerg CARLA Start: 03-21-2018 Radiologic exam ches t 2 views VANGIESerg CARLA Start: 03-21-2018 Assay of lactate VANGIE N CARLA Start: 03-21-2018 Blood count complete auto&auto difrntl wbc MKJEANNA CARLA Start: 03-21-2018 Comprehensive metabo lic panel CHAS CERNA Start: 03-17-2018 Assay of lactate VANGIE N CARLA Start: 03-17-2018 Blood count complete auto&auto difrntl wbc VANGIESerg CARLA Start: 03-17-2018 Comprehensive metabo lic panel CHAS CERNA Start: 03-17-2018 Prothrombin time VANGIE N CARLA Start: 03-17-2018 Thromboplastin time partial plasma/whole blood MKJEANNA CARLA Start: 03-17-2018 CULTURE BLOOD #1 VANGIE N CARLA Start: 03-17-2018 RAPID INFLUENZA A/B ANTIGENS VANGIESerg CARLA Start: 03-17-2018 Radiologic exam ches t 2 views MKJEANNA CARLA Plan of Treatment Date Care Activity Detail Author Start: 07-04-2022 Lipid screen Lipid screen [place], [place] Start: 07-04-2020 Diabetes screen Diabetes screen [place], [place] Start: 01-20-2020 DTaP/Tdap/Td vaccine (2 - Td) DTaP/Tdap/Td vaccine (2 - Td) [place], [place] Start: 10-18-2019 Shingles Vaccine (1 of 2) Shingles Vaccine (1 of 2) [place], [place] Comment on above: Postponed from 08/13 (Unavailable) Start: 07-25-2019 HIV screen HIV screen [place], [place] Comment on above: Postponed from 08/13 (Patient Refused) Start: 01-29-2019 End: 01-29-2019 Office Visit 01/29/2019 Office Visit Family Medicine Chas Cerna, CLINICAL SUPPORT MANAGER - 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 [id number] [facility] [facility] [place], [place] [id number] [facility] Start: 11-19-2018 Influenza vaccination Flu vaccine (# 1) [place], [place] Start: 2018 Colon cancer screen colonoscopy Colon cancer screen colonoscopy [place], [place] Incentive spirometry RT Incentiv e spirometry RT Respiratory Care STAT Every 2hr while awake until discontinued starting 01/27/2019 [place] Comment on above: Every 2hr while awak e until discontinued starting 01/27/2019 Immunizations Immunization Date Immunization Notes Care Provider Fa cility 01-02-2018 Seasonal, quadrivale nt, recombinant, injectable influenza vaccine, preservative free [place], [place] 01-01-2018 influenza virus vacc ine, unspecified formulation [place], [place] 12-03-2016 influenza, injectabl e, quadrivalent, contains preservative [place] 01-31-2016 Influenza Vaccine, unspecified formulation [place] 01-19-2014 influenza virus vacc ine, unspecified formulation [place] 01-11-2012 influenza virus vacc ine, unspecified formulation [place] 01-11-2012 pneumococcal polysac charide vaccine, 23 valent [place], [place] 01-19-2010 tetanus toxoid, redu chris diphtheria toxoid, and acellular pertussis vaccine, adsorbed [place], [place] Payers Date Payer Category Payer Medicaid [id number] 2014 Private Health Insurance [id number] 2014 Private Health Insurance [facility] xxxxxxxxx 2014-Present [phone] [address] [place] [address] xxxxxxxxx [id number] 1970 Unknown [id number] 1970 Unknown [id number] 1970 Unknown [id number] Social History Date Type Detail Facility Start: 01-27-2019 Tobacco smoking stat us [facility] Current every day smoker [place], [place] History of tobacco use Cigarette Smoker [place] Start: 01-27-2019 Cigarettes smoked current (pack per day) - Reported [place], [place] Start: 01-27-2019 Alcohol intake Current drinke r of alcohol (finding) [place] Start: 10-25-2016 Alcohol Comment 6 pack of beer daily [place], [place] Sex Assigned At Not on file [place] Summary Purpose Family History No Family History Records FoundNo Family History Records Found Advance Directives No Advanced Directives Records FoundDocuments on File Type Date Recorded Patient [employer] Expl anation Advance Directives and Living Will Power of Director Inpatient Headache Program Latest Code Status on File Code Status Date Activated Date Inactivated Comments Full Code 03/21/2018 6:51 PM 03/23/2018 8:10 PM Full Code 10/25/2016 8:22 AM 10/25/2016 10:41 AM Discharge Instructions * Instructions* Gopal Houston MD - 01/27/2019 Return to the emergency department if you develop sudden severe shortness of breath, coughing up blood. Nausea, vomiting, headache, fever. Incentive spirometry 10 times per hour while awake. Your goal should be 2000 mL or more * Attachments The following attachments cannot be sent through Care Everywhere. * Rib Fracture (Bangladeshi) documented in this encounter Assessments Diagnosis Closed fracture of multiple ribs of right side, initial encounter- Primary Additional Source Comments (unrecognized sect ion and content) No Status Records FoundNo Status Records Found INFORMATION SOURCE (unrecogn ized section and content) DATE CREATED AUTHOR 01/28/2019 [facility] DATE CREATED AUTHOR 'S ORGANIZ ATION 01/09/2022 [facility] Reason for Visit (unrecogniz ed section and content) Reason Comments Cough Rib Pain (injury) FOR RECORDS PERTAINING TO PATIENTS WHO ARE OR HAVE BEEN ENROLLED IN A CHEMICAL DEPENDENCY/SUBSTANCEABUSE PROGRAM, SOME INFORMATION MAY BE OMITTED. This clinical summary was aggregated from multiple sources. Caution should be exercised in using it in the provision of clinical care. This summary normalizes information from multiple sources, and as a consequence, information in this document may materially change the coding, format and clinical context of patient data. In addition, data may be omitted in some cases. CLINICAL DECISIONS SHOULD BE BASED ON THE PRIMARY CLINICAL RECORDS. [facility] [employer] [employer] [facility]. provides no warranty or guarantee of the accuracy or completeness of information in this document.
--- NOTE | 2023-09-23 13:35 | CT_ITS ---
The [address] [address] Patient Name: XAVIER QUINTERO MRN: [id number] date: 1970 Sex: M Assigned Patient Location: ER Current Patient Location: ER Accession/Order Number: [id number] Exam Date: 09/23/2023 14:04 Report Date: 09/23/2023 14:24 At the request of: SARAH QUIJANO Procedure: CT abdomen pelvis wo con EXAM: CT scan of the abdomen and pelvis without contrast. Dose reduction technique used: Automated exposure control and/or adjustment of the mA and/or kV according to patient size and/or use of iterative reconstruction technique. REASON FOR EXAM: Abdominal pain COMPARISON: CT scan dated 08/31/2023 FINDINGS: Small fat-containing left inguinal hernia. Chronic L5 compression fracture with mild height loss. 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 Tiny bilateral nonobstructing calyceal tip renal stones. Colonic diverticulosis. No renal, ureteral or bladder calculi. No hydronephrosis. Normal appendix. No free fluid in the abdomen or pelvis. No free intraperitoneal air. No dilated or thickened loops of small bowel or colon. Liver, pancreas, spleen, bilateral kidneys, and bilateral adrenal glands are otherwise unremarkable within the limitations of noncontrast CT. No lymphadenopathy in the abdomen or pelvis. Remainder unremarkable. CT/CT abdomen pelvis wo con IMPRESSION: 1. No acute abnormalities in the abdomen or pelvis. 2. IVC filter with multiple legs penetrating the IVC with legs abutting the duodenum, aorta and L3 vertebral body anteriorly. Electronically authenticated by: CARLEY BHARDWAJ Date: 09/23/2023 14:24
--- NOTE | 2023-09-23 13:37 | ED_ITS ---
HPI HPI - General Adult General Stated complaint: ABDOMINAL PAIN, PRIOR VISIT FOR KIDNEY STONE Time Seen by Provider: 09/23/23 13:30 Source: patient Mode of arrival: walk-in Limitations: no limitations History of Present Illness HPI narrative: Patient is a 53-year-old male who presents to the emergency department for a medication refill. He states he was here in this emergency department 4 weeks ago for a small kidney stone. His car broke down and he was not able to keep his urology appointment. He returns to this emergency department for refills of his medication related to the kidney stone. He has not had any fevers, vomiting. He has no significant pain at this time. He reports some pain in the left flank but occasionally pain in the right anterior abdomen. He has had no urinary symptoms continued. No medications taken prior to arrival today. Related Data Home Medications ?Medication ?Instructions ?Recorded ?Confirmed clonidine HCl 0.2 mg tablet 0.2 mg PO Q12H PRN alcohol 08/31/23 09/23/23 withdrawal paliperidone 6 mg tablet,extended 6 mg PO Q24H 08/31/23 09/23/23 release 24 hr vortioxetine 10 mg tablet 10 mg PO DAILY 08/31/23 09/23/23 (Trintellix) Allergies Allergy/AdvReac Type Severity Reaction Status Date / Time No Known Drug Allergies Allergy Verified 08/31/23 17:02 Opioid HPI Opioid Management Most Recent Opioid Data: Last Pain Scale 4 08/31/23 17:08 Review of Systems ROS Constitutional Denies: fever or chills Ears, nose, mouth, and throat Denies: throat pain Cardiovascular Denies: chest pain Respiratory Denies: shortness of breath or cough Gastrointestinal Reports: abdominal pain; Denies: nausea or vomiting Musculoskeletal Reports: back pain; Denies: neck pain Integumentary/Breast Denies: rash Hematologic/Lymphatic Denies: easy bruising or easy bleeding [facility] Medical History (Updated 09/23/23 @ 14:38 by BALAJI Quinonez) Depression ?F32.A - Depression, unspecified (ICD-10) Anxiety ?F41.9 - Anxiety disorder, unspecified (ICD-10) Exam Narrative Exam Narrative: Gen.: Awake, alert, in no distress Head: Normocephalic, atraumatic ENT: Moist mucous membranes Respiratory: No respiratory distress, lungs clear bilaterally Cardio: Regular rate and rhythm Gastrointestinal: Abdomen is soft, nondistended and nontender to palpation Extremities: Moves extremities equally Psych: Normal mood and affect Neuro: No focal neuro deficit Skin: Warm, dry, intact Constitutional Vital Signs, click to edit/add: Last Vital Signs Temp 98.5 F 09/23/23 13:27 Pulse 115 H 09/23/23 13:27 Resp 18 09/23/23 13:27 BP 112/82 09/23/23 13:27 Pulse Ox 98 09/23/23 13:27 O2 Del Method Room Air 09/23/23 13:27 Course Vital Signs Vital signs: Vital Signs Temperature 98.5 F 09/23/23 13:27 Pulse Rate 115 H 09/23/23 13:27 Respiratory Rate 18 09/23/23 13:27 Blood Pressure 112/82 09/23/23 13:27 Pulse Oximetry 98 09/23/23 13:27 Oxygen Delivery Method Room Air 09/23/23 13:27 Temperature 98.5 F 09/23/23 13:27 Pulse Rate 115 H 09/23/23 13:27 Respiratory Rate 18 09/23/23 13:27 Blood Pressure 112/82 09/23/23 13:27 Pulse Oximetry 98 09/23/23 13:27 Oxygen Delivery Method Room Air 09/23/23 13:27 Medical Decision Making MDM Narrative Medical decision making narrative: Lab studies are unremarkable, patient with normal white blood cell count, improved kidney function. CT shows no evidence of acute process. Patient has apparently passed the kidney stone. He has no focal medical complaints on presentation to the ER. He is discharged home to follow-up with his primary care provider. Return to the ER if symptoms change or worsen SUPERVISED APC VISIT, PHYSICIAN ATTESTATION: Based on the medical record the care appears appropriate. ? Medical Records Medical records reviewed: Yes I reviewed the patient's medical records Lab Data Lab results reviewed: Yes I reviewed the patient's lab results Labs: Lab Results 09/23/23 Range/Units 13:51 WBC 4.5 (4.0-11.0) 10^3/uL RBC 4.87 (4.70-6.10) 10^6/uL Hgb 16.3 (14.0-18.0) g/dL Hct 46.2 (42.0-54.0) % MCV 94.9 H (80.0-94.0) fL MCH 33.5 (25.9-34.0) pg MCHC 35.3 H (29.9-35.2) g/dL RDW 11.8 (11.0-15.0) % Plt Count 104 L (150-450) 10^3/uL MPV 10.2 (9.5-13.5) fL Neut % (Auto) 59.7 (43.0-75.0) % Lymph % (Auto) 28.3 (20.5-60.0) % Nash % (Auto) 10.8 (1.7-12.0) % Eos % (Auto) 0.4 L (0.9-7.0) % Baso % (Auto) 0.4 (0.2-2.0) % Neut # (Auto) 2.7 (1.4-6.5) 10^3/uL Lymph # (Auto) 1.3 (1.2-3.8) 10^3/uL Nash # (Auto) 0.5 (0.3-0.8) 10^3/uL Eos # (Auto) 0.0 (0.0-0.7) 10^3/uL Baso # (Auto) 0.0 (0.0-0.1) 10^3/uL Abs Immat Gran (auto) 0.02 (0.00-0.03) 10^3/uL Imm/Tot Granulo (auto) 0.4 (0.0-0.5) % Sodium 136 (136-145) mmol/L Potassium 3.8 (3.5-5.1) mmol/L Chloride 102 (98-107) mmol/L Carbon Dioxide 22.2 (21.0-32.0) mmol/L Anion Gap 15.6 BUN 3.0 L (7.0-18.0) mg/dL Creatinine 0.72 (0.70-1.30) mg/dL Est GFR ( Amer) >60 (>=60) Est GFR (Non-Af Amer) >60 (>=60) BUN/Creatinine Ratio 4.2 Glucose 155 H (74-106) mg/dL Calcium 8.8 (8.5-10.1) mg/dL Imaging Data CT scan - abdomen: Attestation: I have reviewed the pertinent imaging results. Radiologist's impression: ITS Impressions Abdomen/Pelvis CT 09/23/23 13:35 IMPRESSION: 1. No acute abnormalities in the abdomen or pelvis. 2. IVC filter with multiple legs penetrating the IVC with legs abutting the duodenum, aorta and L3 vertebral body anteriorly. Electronically authenticated by: CARLEY BHARDWAJ Date: 09/23/2023 14:24 Discharge Plan Discharge Stand Alone Forms: Portal Instructions Clinical Impression: Acute left flank pain Patient Disposition: Home, Self-Care Time of Disposition Decision: 14:36 Condition: Good Prescriptions / Home Meds: No Action clonidine HCl 0.2 mg tablet 0.2 mg PO Q12H PRN (Reason: alcohol withdrawal) Trintellix 10 mg tablet 10 mg PO DAILY paliperidone 6 mg tablet extended release 24hr 6 mg PO Q24H Print Language: Hong Konger Additional Instructions: Your labs are normal and your scan shows you passed the kidney stone. Please follow up with your doctor Referrals: Physician,Non-Staff, MD [Primary Care Provider] - 1 week
[2023-09-23 14:04] LABS: Basophils Percent Auto 0.4 % (0.2-2.0); Eosinophils Percent Auto 0.4 % (0.9-7.0); Hematocrit 46.2 % (42.0-54.0); Hemoglobin 16.3 g/dL (14.0-18.0); Immature Granulocytes Abs Auto 0.02 10^3/uL (0.00-0.03); Immature Granulocytes Pct Auto 0.4 % (0.0-0.5); Lymphocytes Absolute Auto 1.3 10^3/uL (1.2-3.8); Lymphocytes Percent Auto 28.3 % (20.5-60.0); Mean Corpuscular HGB Conc 35.3 g/dL (29.9-35.2); Mean Corpuscular Hemoglobin 33.5 pg (25.9-34.0); Mean Corpuscular Volume 94.9 fL (80.0-94.0); Mean Platelet Volume 10.2 fL (9.5-13.5); Monocytes Absolute Auto 0.5 10^3/uL (0.3-0.8); Monocytes Percent Auto 10.8 % (1.7-12.0); Neutrophils Absolute Auto 2.7 10^3/uL (1.4-6.5); Neutrophils Percent Auto 59.7 % (43.0-75.0); Platelet Count 104 10^3/uL (150-450); Red Blood Count 4.87 10^6/uL (4.70-6.10); Red Cell Distribution Width 11.8 % (11.0-15.0); White Blood Count 4.5 10^3/uL (4.0-11.0)
[2023-09-23 14:16] LABS: Anion Gap 15.6; BUN Creatinine Ratio 4.2; Calcium 8.8 mg/dL (8.5-10.1); Carbon Dioxide 22.2 mmol/L (21.0-32.0); Chloride 102 mmol/L (98-107); Estimated GFR (African America >60 (>=60); Estimated GFR (Non-African Ame >60 (>=60); Glucose 155 mg/dL (74-106); Potassium 3.8 mmol/L (3.5-5.1); Sodium 136 mmol/L (136-145)
== END 2023-09-23 14:49 | disposition home or self-care (01) ==
PROVIDERS: Physician Assistant; Emergency Provider Emergency Medicine Emergency Medical Services
DX: R10.9 Unspecified abdominal pain (principal); Z87.442 Personal history of urinary calculi
CPT/HCPCS: 36415; 74176; 80048; 85025; 99284

== ENCOUNTER 2023-10-24 18:13 | Emergency (ER) | payer OTHER, SELFPAY ==
[2023-10-24 18:25] VITALS: BP 124/81; PULSE 72; TEMP 37; O2SAT 98; BMI 26.6
--- NOTE | 2023-10-24 20:02 | XR_ITS ---
The [address] [address] Patient Name: XAVIER QUINTERO MRN: [id number] date: 1970 Sex: M Assigned Patient Location: ER Current Patient Location: ER Accession/Order Number: [id number] Exam Date: 10/24/2023 20:15 Report Date: 10/24/2023 22:18 At the request of: RICK ROSALES Procedure: XR abdomen 1V XR abdomen 1V, 10/24/2023 7:15 PM CDT: History: pain. Comparison: None. Technique: 1 view abdomen Findings: The bowel gas pattern is nonobstructive. There is no evidence of free intra-abdominal air. There is no evidence of organomegaly or abnormal intra-abdominal calcifications. There is an IVC filter present overlying the L2 and L3 vertebra. XR/XR abdomen 1V Impression: Nonobstructive bowel gas pattern without evidence of free air. Electronically authenticated by: ZAC SAUCEDO Date: 10/24/2023 22:18
--- NOTE | 2023-10-24 20:04 | ED_ITS ---
HPI - Abdominal Pain General Chief Complaint: Abdominal Pain Stated Complaint: Abdominal Pain Time Seen by Provider: 10/24/23 19:57 Mode of arrival: walk-in History of Present Illness HPI narrative: 53-year-old male presents for abdominal pain. Its diffuse over the central abdomen and he has had it for the past 2 days. He had a bowel movement this morning. No trauma fever or diarrhea. He states he had a CAT scan about a week ago. It was actually a month ago and it was negative. Related Data Home Medications ?Medication ?Instructions ?Recorded ?Confirmed clonidine HCl 0.2 mg tablet 0.2 mg PO Q12H PRN alcohol 08/31/23 09/23/23 withdrawal paliperidone 6 mg tablet,extended 6 mg PO Q24H 08/31/23 09/23/23 release 24 hr vortioxetine 10 mg tablet 10 mg PO DAILY 08/31/23 09/23/23 (Trintellix) Previous Rx's ?Medication ?Instructions ?Recorded cephalexin 500 mg capsule 500 mg PO TID 7 days #21 caps 10/24/23 Allergies Allergy/AdvReac Type Severity Reaction Status Date / Time No Known Drug Allergies Allergy Verified 08/31/23 17:02 Review of Systems ROS Narrative A ten point review of systems is negative except as noted above. [facility] Medical History (Updated 10/24/23 @ 22:29 by Bogdan Dwyer MD) Depression ?F32.A - Depression, unspecified (ICD-10) Anxiety ?F41.9 - Anxiety disorder, unspecified (ICD-10) Exam Narrative Exam Narrative: Nurses note and vital signs reviewed and patient is not hypoxic. General: The patient appears well and in no apparent distress. Patient is resting comfortably on cart. Skin: Warm, dry, no pallor noted. There is no rash noted. Head: Normocephalic, atraumatic Eye: Normal conjunctiva, no drainage Ears, Nose, Mouth, and Throat: oral mucosa is moist. Nares patent. Cardiovascular: Regular Rate and Rhythm Respiratory: Patient is in no distress, no accessory muscle use, lungs are clear to auscultation, no wheezing, rales or rhonchi Back: non-tender GI: Normal bowel sounds, minimal tenderness to palpation, no masses appreciated. No rebound, guarding, or rigidity noted. Musculoskeletal: The patient has no evidence of calf tenderness, no pitting edema, symmetrical pulses noted bilaterally Neurological: A&O, normal speech Psychiatric: Cooperativ Constitutional Vital Signs, click to edit/add: Last Vital Signs Temp 98.6 F 10/24/23 18:25 Pulse 72 10/24/23 18:25 Resp 18 10/24/23 18:25 BP 124/81 10/24/23 18:25 Pulse Ox 98 10/24/23 18:25 Course Vital Signs Vital signs: Vital Signs Temperature 98.6 F 10/24/23 18:25 Pulse Rate 72 10/24/23 18:25 Respiratory Rate 18 10/24/23 18:25 Blood Pressure 124/81 10/24/23 18:25 Pulse Oximetry 98 10/24/23 18:25 Temperature 98.6 F 10/24/23 18:25 Pulse Rate 72 10/24/23 18:25 Respiratory Rate 18 10/24/23 18:25 Blood Pressure 124/81 10/24/23 18:25 Pulse Oximetry 98 10/24/23 18:25 MDM - Abdominal Pain MDM Narrative Medical decision making narrative: Blood work is normal including WBC. KUB shows nonspecific pattern per radiologist. Urinalysis shows UTI. He was started on Keflex here and prescribed same. Treatment diagnosis and follow-up were discussed with the patient. Differential Diagnosis Differential diagnosis: Likely abdominal pain, calculus of kidney, constipation and gastroenteritis Lab Data Attestation: I reviewed the patient's lab results. Labs: Lab Results 10/24/23 10/24/23 10/24/23 Range/Units 19:59 20:25 20:35 WBC 7.1 (4.0-11.0) 10^3/uL RBC 5.08 (4.70-6.10) 10^6/uL Hgb 16.9 (14.0-18.0) g/dL Hct 49.1 (42.0-54.0) % MCV 96.7 H (80.0-94.0) fL MCH 33.3 (25.9-34.0) pg MCHC 34.4 (29.9-35.2) g/dL RDW 12.2 (11.0-15.0) % Plt Count 175 (150-450) 10^3/uL MPV 11.4 (9.5-13.5) fL Neut % (Auto) 65.0 (43.0-75.0) % Lymph % (Auto) 25.1 (20.5-60.0) % [place] % (Auto) 8.1 (1.7-12.0) % Eos % (Auto) 1.0 (0.9-7.0) % Baso % (Auto) 0.4 (0.2-2.0) % Neut # (Auto) 4.6 (1.4-6.5) 10^3/uL Lymph # (Auto) 1.8 (1.2-3.8) 10^3/uL [place] # (Auto) 0.6 (0.3-0.8) 10^3/uL Eos # (Auto) 0.1 (0.0-0.7) 10^3/uL Baso # (Auto) 0.0 (0.0-0.1) 10^3/uL Abs Immat Gran (auto) 0.03 (0.00-0.03) 10^3/uL Imm/Tot Granulo (auto) 0.4 (0.0-0.5) % Sodium 138 (136-145) mmol/L Potassium 3.9 (3.5-5.1) mmol/L Chloride 102 (98-107) mmol/L Carbon Dioxide 30.2 (21.0-32.0) mmol/L Anion Gap 9.7 BUN 5.0 L (7.0-18.0) mg/dL Creatinine 0.83 (0.70-1.30) mg/dL Est GFR ( Amer) >60 (>=60) Est GFR (Non-Af Amer) >60 (>=60) BUN/Creatinine Ratio 6.0 Glucose 93 (74-106) mg/dL Calcium 9.1 (8.5-10.1) mg/dL Total Bilirubin 0.8 (0.2-1.0) mg/dL Direct Bilirubin 0.2 (0.0-0.2) mg/dL AST 24 (15-37) U/L ALT 27 (16-63) U/L Alkaline Phosphatase 105 (46-116) U/L Total Protein 7.4 (6.4-8.2) g/dL Albumin 3.8 (3.4-5.0) g/dL Globulin 3.6 g/dL Albumin/Globulin Ratio 1.1 Amylase 108 (25-115) U/L Lipase 473.0 H (16.0-77.0) U/L Urine Color Lt. yellow (YELLOW) Urine Clarity Clear (CLEAR) Urine pH 7.0 (5.0-9.0) Ur Specific [place] 1.010 (1.005-1.025) Urine Protein Negative (NEG/TRACE) mg/dL Urine Glucose (UA) Negative (NEGATIVE) mg/dL Urine Ketones Negative (NEGATIVE) mg/dL Urine Occult Blood Negative (NEGATIVE) Urine Nitrite Negative (NEGATIVE) Urine Bilirubin Negative (NEGATIVE) Urine Urobilinogen 2.0 A (0.2-1.0) EU/dL Ur Leukocyte Esterase Small A (NEGATIVE) Urine RBC 0-2 (0-2) #/HPF Urine WBC 10-20 A (NONE SEEN) #/HPF Ur Squamous Epith Cells Rare (NONE/RARE) #/LPF Urine Crystals None seen (None Seen) #/HPF Urine Bacteria Trace A (NONE SEEN) #/HPF Urine Casts None seen (NONE SEEN) #/LPF Urine Mucus None seen (NONE SEEN) Ur Culture Indicated? Yes Imaging Data Abdominal x-ray: Radiologist's impression: ITS Impressions Abdomen X-Ray 10/24/23 20:02 Impression: Nonobstructive bowel gas pattern without evidence of free air. Electronically authenticated by: ZAC SAUCEDO Date: 10/24/2023 22:18 Discharge Plan Discharge Stand Alone Forms: Portal Instructions Chief Complaint: Abdominal Pain Clinical Impression: Urinary tract infection Patient Disposition: Home, Self-Care Time of Disposition Decision: 22:29 Condition: Good Mode of Transportation: Private Vehicle Prescriptions / Home Meds: New cephalexin 500 mg capsule 500 mg PO TID 7 Days Qty: 21 0RF No Action clonidine HCl 0.2 mg tablet 0.2 mg PO Q12H PRN (Reason: alcohol withdrawal) Trintellix 10 mg tablet 10 mg PO DAILY paliperidone 6 mg tablet extended release 24hr 6 mg PO Q24H Print Language: Citizen Of [place] Instructions: Urinary Tract Infection in Men (ED) Referrals: Physician,Non-Staff, MD [Primary Care Provider] - 1 week
[2023-10-24 20:21] LABS: Basophils Percent Auto 0.4 % (0.2-2.0); Eosinophils Absolute Auto 0.1 10^3/uL (0.0-0.7); Hematocrit 49.1 % (42.0-54.0); Hemoglobin 16.9 g/dL (14.0-18.0); Immature Granulocytes Abs Auto 0.03 10^3/uL (0.00-0.03); Immature Granulocytes Pct Auto 0.4 % (0.0-0.5); Lymphocytes Absolute Auto 1.8 10^3/uL (1.2-3.8); Lymphocytes Percent Auto 25.1 % (20.5-60.0); Mean Corpuscular HGB Conc 34.4 g/dL (29.9-35.2); Mean Corpuscular Hemoglobin 33.3 pg (25.9-34.0); Mean Corpuscular Volume 96.7 fL (80.0-94.0); Mean Platelet Volume 11.4 fL (9.5-13.5); Monocytes Absolute Auto 0.6 10^3/uL (0.3-0.8); Monocytes Percent Auto 8.1 % (1.7-12.0); Neutrophils Absolute Auto 4.6 10^3/uL (1.4-6.5); Platelet Count 175 10^3/uL (150-450); Red Blood Count 5.08 10^6/uL (4.70-6.10); Red Cell Distribution Width 12.2 % (11.0-15.0); White Blood Count 7.1 10^3/uL (4.0-11.0)
[2023-10-24 20:40] LABS: Anion Gap 9.7; Calcium 9.1 mg/dL (8.5-10.1); Carbon Dioxide 30.2 mmol/L (21.0-32.0); Chloride 102 mmol/L (98-107); Estimated GFR (African America >60 (>=60); Estimated GFR (Non-African Ame >60 (>=60); Glucose 93 mg/dL (74-106); Potassium 3.9 mmol/L (3.5-5.1); Sodium 138 mmol/L (136-145)
[2023-10-24 20:44] LABS: Bilirubin Urine NEGATIVE (NEGATIVE); Blood Urine NEGATIVE (NEGATIVE); Clarity Urine CLEAR (CLEAR); Color Urine LT. YELLOW (YELLOW); Glucose Urine UA NEGATIVE (NEGATIVE); Ketones Urine NEGATIVE (NEGATIVE); Leukocyte Esterase Urine SMALL (NEGATIVE); Nitrite Urine NEGATIVE (NEGATIVE); Protein Urine NEGATIVE (NEG/TRACE)
[2023-10-24 20:50] LABS: Bacteria Urine TRACE #/HPF (NONE SEEN); Cast Seen? NONE SEEN #/LPF (NONE SEEN); Crystals Seen? None Seen #/HPF (None Seen); Mucus Urine NONE SEEN (NONE SEEN); RBC Urine 0-2 #/HPF (0-2); Squamous Epithelial Cell Urine RARE #/LPF (NONE/RARE); Urine Culture Indicated YES
[2023-10-24 20:50] LABS: Alanine Aminotransferase 27 U/L (16-63); Albumin Globulin Ratio 1.1; Albumin Level 3.8 g/dL (3.4-5.0); Alkaline Phosphatase 105 U/L (46-116); Amylase 108 U/L (25-115); Aspartate Amino Transferase 24 U/L (15-37); Bilirubin Direct 0.2 mg/dL (0.0-0.2); Bilirubin Total 0.8 mg/dL (0.2-1.0); Globulin 3.6 g/dL; Total Protein 7.4 g/dL (6.4-8.2)
[2023-10-24] MEDS: CEPHALEXIN 500 MG CAPSULE PO (22:37)
== END 2023-10-24 22:41 | disposition home or self-care (01) ==
PROVIDERS: Emergency Provider Emergency Medicine
DX: N39.0 Urinary tract infection, site not specified (principal)
CPT/HCPCS: 36415; 74018; 80048; 80076; 81001; 82150; 83690; 85025; 87086; 99285

== ENCOUNTER 2023-11-11 11:28 | Emergency (ER) | payer OTHER, SELFPAY ==
[2023-11-11] VITALS (13 sets, daily range): BP systolic 107–119; BP diastolic 69–76; PULSE 67; TEMP 36.9; O2SAT 98–100; BMI 26.6
[2023-11-11] MEDS: FAMOTIDINE/PF 20 MG/2 ML VIAL IV (12:21)
[2023-11-11 12:38] LABS: Alanine Aminotransferase 43 U/L (16-63); Albumin Globulin Ratio 1.2; Albumin Level 3.8 g/dL (3.4-5.0); Alkaline Phosphatase 94 U/L (46-116); Anion Gap 14.8; Aspartate Amino Transferase 38 U/L (15-37); BUN Creatinine Ratio 3.9; Bilirubin Total 0.9 mg/dL (0.2-1.0); Carbon Dioxide 23.2 mmol/L (21.0-32.0); Chloride 103 mmol/L (98-107); Estimated GFR (African America >60 (>=60); Estimated GFR (Non-African Ame >60 (>=60); Globulin 3.2 g/dL; Glucose 105 mg/dL (74-106); Sodium 137 mmol/L (136-145)
[2023-11-11 12:53] LABS: Eosinophils Percent Auto 0.7 % (0.9-7.0); Hematocrit 43.6 % (42.0-54.0); Hemoglobin 15.5 g/dL (14.0-18.0); Immature Granulocytes Abs Auto 0.01 10^3/uL (0.00-0.03); Immature Granulocytes Pct Auto 0.2 % (0.0-0.5); Lymphocytes Absolute Auto 1.6 10^3/uL (1.2-3.8); Lymphocytes Percent Auto 38.8 % (20.5-60.0); Mean Corpuscular HGB Conc 35.6 g/dL (29.9-35.2); Mean Corpuscular Hemoglobin 33.8 pg (25.9-34.0); Mean Corpuscular Volume 95.2 fL (80.0-94.0); Mean Platelet Volume 10.7 fL (9.5-13.5); Monocytes Absolute Auto 0.4 10^3/uL (0.3-0.8); Monocytes Percent Auto 9.2 % (1.7-12.0); Neutrophils Absolute Auto 2.1 10^3/uL (1.4-6.5); Neutrophils Percent Auto 50.1 % (43.0-75.0); Platelet Count 138 10^3/uL (150-450); Red Blood Count 4.58 10^6/uL (4.70-6.10); White Blood Count 4.1 10^3/uL (4.0-11.0)
--- NOTE | 2023-11-11 13:36 | ED_ITS ---
HPI - Abdominal Pain General Chief Complaint: Abdominal Pain Stated Complaint: ABDOMINAL PAIN Time Seen by Provider: 11/11/23 12:02 Source: patient Mode of arrival: walk-in Limitations: no limitations History of Present Illness HPI narrative: The patient coming to the ER for the third time within the last 3 months for abdominal pain evaluation, the pain is in the mid of the abdomen according to the patient is not related to eating although sometimes is related to smoking. No associated bowel movement changes no nausea no vomiting The patient comes and goes and there is no specific reason that we will bring the pain or make it better Sometimes it is associated with appetite changes The patient already had a workup done for that before and he did not have any follow-up with outpatient Related Data Home Medications ?Medication ?Instructions ?Recorded ?Confirmed clonidine HCl 0.2 mg tablet 0.2 mg PO Q12H PRN alcohol 08/31/23 11/11/23 withdrawal paliperidone 6 mg tablet,extended 6 mg PO Q24H 08/31/23 11/11/23 release 24 hr vortioxetine 10 mg tablet 10 mg PO DAILY 08/31/23 11/11/23 (Trintellix) Previous Rx's ?Medication ?Instructions ?Recorded famotidine 20 mg tablet (Pepcid) 20 mg PO BID #20 tabs 11/11/23 Allergies Allergy/AdvReac Type Severity Reaction Status Date / Time No Known Drug Allergies Allergy Verified 08/31/23 17:02 Review of Systems ROS Status of ROS 10 or more systems reviewed and unremark able except as noted in history and below [facility] Medical History (Updated 11/11/23 @ 13:17 by Rhoda Hernandez MD) Depression ?F32.A - Depression, unspecified (ICD-10) Anxiety ?F41.9 - Anxiety disorder, unspecified (ICD-10) Exam Narrative Exam Narrative: Nurses notes and vital signs reviewed and patient is not hypoxic. General: Well-appearing and in no apparent distress. Skin: Warm, dry, no pallor noted. No rash. Head: Normocephalic, atraumatic. Neck: Supple, non-tender. Eye: Pupils are equal, round and EOMI. No scleral icterus. Ears, Nose, Mouth, and Throat: TM are clear, no nasal mucosal hypertrophy. Oral mucosa is moist, no posterior oropharynx erythema, uvula is mid-line Cardiovascular: Regular Rate and Rhythm without murmur, gallop or rub. Respiratory: No accessory muscle use or respiratory distress. Lungs are clear to auscultation, no wheezing, rales or rhonchi Chest Wall: no tenderness Back: No midline thoracic or lumbar vertebral tenderness. No CVA tenderness Musculoskeletal: normal ROM, no calf or popliteal tenderness, no lower extremity edema/swelling GI: Abdomen is soft, non-distended. Normal bowel sounds. No masses appreciated. No tenderness to palpation. No rebound, guarding, or rigidity noted. Neurological: A&O x4. No cranial nerve dysfunction observed. No truncal ataxia. Moves all extremities. Sensation intact. Psychiatric: Cooperative and interactive. Normal mood and affect. Constitutional Vital Signs, click to edit/add: Last Vital Signs Temp 98.4 F 11/11/23 11:44 Pulse 67 11/11/23 11:44 Resp 18 11/11/23 11:44 BP 107/72 11/11/23 12:30 Pulse Ox 99 11/11/23 13:20 O2 Del Method Room Air 11/11/23 11:44 Course Vital Signs Vital signs: Vital Signs Blood Pressure 110/69 11/11/23 11:43 Pulse Oximetry 100 11/11/23 11:43 Temperature 98.4 F 11/11/23 11:44 Pulse Rate 67 11/11/23 11:44 Respiratory Rate 18 11/11/23 11:44 Blood Pressure 107/72 11/11/23 12:30 Pulse Oximetry 99 11/11/23 13:20 Oxygen Delivery Method Room Air 11/11/23 11:44 MDM - Abdominal Pain MDM Narrative Medical decision making narrative: The patient CBC and chemistry showed no acute pathology It was noted that the patient and previous workup had a CAT scan done showing IVC filter and it did ask the patient about that and he was not even aware that he had a IVC filter Right now the patient was referred to gastroenterology as outpatient he is to be started on Pepcid supportive care possible gastritis The patient is to follow up with primary care physician in next 2-3 days or to return to the emergency department should any of the signs or symptoms worsen or new symptoms develop. The patient agrees with the following Diagnosis and Treatment plan and the patient will be discharged home. Lab Data Labs: Lab Results 11/11/23 Range/Units 11:50 WBC 4.1 (4.0-11.0) 10^3/uL RBC 4.58 L (4.70-6.10) 10^6/uL Hgb 15.5 (14.0-18.0) g/dL Hct 43.6 (42.0-54.0) % MCV 95.2 H (80.0-94.0) fL MCH 33.8 (25.9-34.0) pg MCHC 35.6 H (29.9-35.2) g/dL RDW 12.0 (11.0-15.0) % Plt Count 138 L (150-450) 10^3/uL MPV 10.7 (9.5-13.5) fL Neut % (Auto) 50.1 (43.0-75.0) % Lymph % (Auto) 38.8 (20.5-60.0) % [place] % (Auto) 9.2 (1.7-12.0) % Eos % (Auto) 0.7 L (0.9-7.0) % Baso % (Auto) 1.0 (0.2-2.0) % Neut # (Auto) 2.1 (1.4-6.5) 10^3/uL Lymph # (Auto) 1.6 (1.2-3.8) 10^3/uL [place] # (Auto) 0.4 (0.3-0.8) 10^3/uL Eos # (Auto) 0.0 (0.0-0.7) 10^3/uL Baso # (Auto) 0.0 (0.0-0.1) 10^3/uL Abs Immat Gran (auto) 0.01 (0.00-0.03) 10^3/uL Imm/Tot Granulo (auto) 0.2 (0.0-0.5) % Sodium 137 (136-145) mmol/L Potassium 4.0 (3.5-5.1) mmol/L Chloride 103 (98-107) mmol/L Carbon Dioxide 23.2 (21.0-32.0) mmol/L Anion Gap 14.8 BUN 3.0 L (7.0-18.0) mg/dL Creatinine 0.76 (0.70-1.30) mg/dL Est GFR ( Amer) >60 (>=60) Est GFR (Non-Af Amer) >60 (>=60) BUN/Creatinine Ratio 3.9 Glucose 105 (74-106) mg/dL Calcium 9.0 (8.5-10.1) mg/dL Total Bilirubin 0.9 (0.2-1.0) mg/dL AST 38 H (15-37) U/L ALT 43 (16-63) U/L Alkaline Phosphatase 94 (46-116) U/L Total Protein 7.0 (6.4-8.2) g/dL Albumin 3.8 (3.4-5.0) g/dL Globulin 3.2 g/dL Albumin/Globulin Ratio 1.2 Lipase 38.0 (16.0-77.0) U/L Discharge Plan Discharge Stand Alone Forms: Work/School Release, Portal Instructions Chief Complaint: Abdominal Pain Clinical Impression: Abdominal pain Qualifiers: Abdominal location: generalized Qualified Code(s): R10.84 - Generalized abdominal pain Patient Disposition: Home, Self-Care Time of Disposition Decision: 13:17 Condition: Good Prescriptions / Home Meds: New famotidine [Pepcid] 20 mg tablet 20 mg PO BID Qty: 20 0RF No Action clonidine HCl 0.2 mg tablet 0.2 mg PO Q12H PRN (Reason: alcohol withdrawal) Trintellix 10 mg tablet 10 mg PO DAILY paliperidone 6 mg tablet extended release 24hr 6 mg PO Q24H Print Language: Yakut Instructions: Abdominal Pain (ED) Referrals: DICK CHONG [Physician] - 1 week Physician,Non-Staff, MD [Primary Care Provider] - 1 week Discharge Date/Time: 11/11/23 13:26
== END 2023-11-11 13:26 | disposition home or self-care (01) ==
PROVIDERS: Emergency Provider Emergency Medicine
DX: R10.84 Generalized abdominal pain (principal)
CPT/HCPCS: 36415; 80053; 83690; 85025; 96374; 99284